=== PATIENT | male | born 1975 | race Hispanic/Latino ===

== ENCOUNTER 2019-01-18 14:41 | Emergency (ER) | payer BC ==
[2019-01-18 14:48] VITALS: BP 120/71; PULSE 61; RESP 16; TEMP 97.9; O2SAT 98
--- NOTE | 2019-01-18 15:17 | ED PDOC ---
Upper Extremity Pain/Injury Time Seen by Provider: 01/18/19 15:05 Chief Complaint (Nursing): Upper Extremity Problem/Injury Chief Complaint (Provider): Upper Extremity Problem/Injury History Per: Patient History/Exam Limitations: no limitations Onset/Duration Of Symptoms: Days (x2 weeks) Quality: "Pain" Additional Complaint(s): 43 year old male presents to the ED after hyperextending fingers 2 weeks ago. Patient had moderate swelling to the dorsum of hand at the time which gradually improved. Pain is still persistent base of third digit at MCP and on the palmar surface. He is able to flex and extend digits without any difficulty and there is no obvious deformity. Patient is ambidextrous. PMD: none provided Past Medical History Reviewed: Historical Data, Nursing Documentation, Vital Signs Vital Signs: Last Vital Signs Temp 97.9 F 01/18/19 14:47 Pulse 61 01/18/19 14:47 Resp 16 01/18/19 14:47 BP 120/71 01/18/19 14:47 Pulse Ox 98 01/18/19 14:47 - Family History Family History: States: Unknown Family Hx - Home Medications Home Medications: Ambulatory Orders Medication Instructions Recorded Naproxen 375 mg PO Q8 PRN #21 tablet 01/18/19 - Allergies Allergies/Adverse Reactions: Allergies Allergy/AdvReac Type Severity Reaction Status Date / Time No Known Allergies Allergy Verified 01/18/19 14:46 Review of Systems ROS Statement: Except As Marked, All Systems Reviewed And Found Negative Musculoskeletal: Positive for: Hand Pain (right hand swelling and pain) Physical Exam - Reviewed Nursing Documentation Reviewed: Yes Vital Signs Reviewed: Yes - Physical Exam Appears: Positive for: No Acute Distress Skin: Positive for: Normal Color, Warm, Dry Eye Exam: Positive for: Normal appearance Extremity: Positive for: Other (Right hand: tenderness noted by palmar surface at MCP, normal flexion and extension of digits) Neurological/Psych: Positive for: Awake, Alert, Oriented - ECG O2 Sat by Pulse Oximetry: 98 (RA) Pulse Ox Interpretation: Normal - Progress ED Course And Treament: XRY OF HAND RIGHT: NEG FX Medical Decision Making Medical Decision Making: Time: 1505 Plan: --Right hand XR Scribe Attestation: Documented by Hilary Mathew acting as a scribe for Carlton Zhong PA-C. Provider Scribe Attestation: All medical record entries made by the Scribe were at my direction and personally dictated by me. I have reviewed the chart and agree that the record accurately reflects my personal performance of the history, physical exam, medical decision making, and the department course for this patient. I have also personally directed, reviewed, and agree with the discharge instructions and disposition. Disposition - Clinical Impression Clinical Impression: Finger strain - Patient ED Disposition Is Patient to be Admitted: No - Disposition Referrals: Filipe Shukla MD [Medical Doctor] - Disposition: Routine/Home Disposition Time: 15:43 Condition: FAIR Prescriptions: Naproxen 375 mg PO Q8 PRN #21 tablet PRN Reason: Pain, Moderate (4-7) Instructions: Common Finger Injuries (DC), Finger Sprain (DC)
--- NOTE | 2019-01-18 16:08 | RAD ---
PROCEDURE: Right Hand Radiographs. HISTORY: hand injury COMPARISON: None. TECHNIQUE: 3 views obtained. FINDINGS: BONES: No acute fracture. JOINTS: Unremarkable. SOFT TISSUES: Normal. OTHER FINDINGS: None. IMPRESSION: No demonstrated fracture or dislocation.
== END 2019-01-18 16:04 | disposition home or self-care (01) ==
LOC: H.ER 14:41
DX: S56.119A Strain of flexor muscle, fascia and tendon of finger of unspecified finger at forearm level, initial encounter (principal)